=== PATIENT | male | born 1965 | race Caucasian/White ===

== ENCOUNTER 2017-06-17 08:28 | Emergency (ER) | payer BC ==
[~2017-06-17] VITALS: Ht 182.9 cm; Wt 88.1 kg
[~2017-06-17 08:28] MED LIST: CEPHALEXIN500 M1 PO; CIPRO 500MG TA500 MG; ELOCON OINT45 GM TP; HUMALOG PEN100 U/ML SC; LANTUS PEN100 U/ML; LANTUS PEN100 U/ML SC; LEVAQUIN 750MG750 M1 PO; MOMETASONE TP; NOVOLOG FLEX100 U/ML; PREDNISONE20 MG PO
[2017-06-17] MEDS ORDERED: ZOFRAN ODT4 MG PO (14:02)
[2017-06-17 14:04] VITALS: BP 133/76
== END 2017-06-17 14:04 | disposition home or self-care (01) ==
LOC: ED 08:28
DX: E10.10 Type 1 diabetes mellitus with ketoacidosis without coma (principal); Z79.4 Long term (current) use of insulin; R19.7 Diarrhea, unspecified; R11.10 Vomiting, unspecified; R10.817 Generalized abdominal tenderness
CPT/HCPCS: J1815; J2405; J7030

== ENCOUNTER → 2017-06-18 | Outpatient (CLI) | payer BC ==
[2017-06-17 14:04] VITALS: BP 133/76
[~2017-06-18] MED LIST changes: +ZOFRAN ODT4 MG PO
== END ==
LOC: LAB 07:17
DX: R19.7 Diarrhea, unspecified (principal)

== ENCOUNTER 2017-10-14 08:58 | Emergency (ER) | payer BC ==
[~2017-10-14] VITALS: Ht 182.9 cm; Wt 88.6 kg
[2017-10-14 09:56] LABS: HEMATOCRIT 50.5 % (42.0-52.0); HEMOGLOBIN 17.4 g/dL (13.5-18.0); MEAN CELL VOLUME 86 fl (78-100); MEAN CORPUSCULAR HEMOGLOBIN 30 pg (27-31); MEAN CORPUSCULAR HGB CONC 35 g/dL (33-37); PLATELET COUNT 157 K/mm3 (130-400); RED BLOOD COUNT 5.86 M/mm3 (4.20-5.60); RED CELL DISTRIBUTION WIDTH 12.7 % (11.5-14.5); WHITE BLOOD COUNT 7.4 K/mm3 (4.8-10.8)
[2017-10-14 10:06] LABS: ALBUMIN 3.7 g/dL (3.5-5.0); BUN/CREATININE RATIO 18.7 (6.0-26.0); CALCIUM 8.8 mg/dL (8.4-10.2); POTASSIUM 4.5 mmol/L (3.6-5.0); TOTAL BILIRUBIN 0.9 mg/dL (0.2-1.3); TOTAL PROTEIN 6.5 g/dL (6.3-8.2)
[2017-10-14 10:16] LABS: BAND 12 % (0-10); LYMPHOCYTE 11 % (20-51); MONOCYTE 12 % (3-10); NEUTROPHILS 65 % (42-75)
[2017-10-14 11:12] LABS: URINE APPEARANCE CLEAR; URINE BILIRUBIN NEGATIVE (NEGATIVE); URINE BLOOD NEGATIVE (NEGATIVE); URINE COLOR AMBER; URINE KETONE 2+ (NEGATIVE); URINE LEUKOCYTE ESTERASE NEGATIVE (NEGATIVE); URINE NITRATE NEGATIVE (NEGATIVE); URINE PROTEIN(semi-quant) NEGATIVE (NEGATIVE); URINE UROBILINOGEN NORMAL (NORMAL); URINE WBC 0-1 /hpf (0-3)
[2017-10-14] MEDS ORDERED: TESSALON PERLE100 M1 PO (12:24)
[2017-10-14 13:01] VITALS: BP 117/69
== END 2017-10-14 12:50 | disposition home or self-care (01) ==
LOC: ED 08:58
PROVIDERS: Nurse Practitioner Primary Care
DX: J11.1 Influenza due to unidentified influenza virus with other respiratory manifestations (principal); E10.9 Type 1 diabetes mellitus without complications; Z79.4 Long term (current) use of insulin
CPT/HCPCS: J7030

== ENCOUNTER → 2018-02-07 | Outpatient (CLI) | payer BC ==
[~2018-02-07] MED LIST changes: +TESSALON PERLE100 M1 PO
== END ==
LOC: LAB 06:15
DX: E10.9 Type 1 diabetes mellitus without complications (principal)

== ENCOUNTER → 2018-05-09 | Outpatient (CLI) | payer BC | LOC: LAB 07:03 | DX: E10.9 Type 1 diabetes mellitus without complications (principal) ==

== ENCOUNTER → 2018-06-02 | Outpatient (CLI) | payer BC ==
[2018-06-02 07:29] LABS: EOS # 0.2 (0.04-0.40); EOS % 2.7 % (0.0-4.0); HEMATOCRIT 49.3 % (42.0-52.0); HEMOGLOBIN 17.4 g/dL (13.5-18.0); LYMPH# 1.4 (1.50-4.00); MEAN CELL VOLUME 87 fl (78-100); MEAN CORPUSCULAR HEMOGLOBIN 31 pg (27-31); MEAN CORPUSCULAR HGB CONC 35 g/dL (33-37); MEAN PLATELET VOLUME 9.5 fl (7.4-10.4); MONO # 0.5 (0.20-0.80); NEU # 4.7 (1.40-6.50); PLATELET COUNT 225 K/mm3 (130-400); RED BLOOD COUNT 5.69 M/mm3 (4.20-5.60); RED CELL DISTRIBUTION WIDTH 12.7 % (11.5-14.5); WHITE BLOOD COUNT 6.8 K/mm3 (4.8-10.8)
[2018-06-02 07:39] LABS: ALBUMIN 3.9 g/dL (3.5-5.0); CALCIUM 9.1 mg/dL (8.4-10.2); POTASSIUM 4.3 mmol/L (3.6-5.0); TOTAL BILIRUBIN 0.9 mg/dL (0.2-1.3); TOTAL PROTEIN 6.5 g/dL (6.3-8.2)
[2018-06-02 09:18] LABS: ERYTHROCYTE SEDIMENTATION RATE 0 mm/hr (0-20)
[2018-06-02 22:40] LABS: IMMUNOGLOBULIN E, TOTAL 27 IU/mL (0-100)
[2018-06-03 06:51] LABS: C-REACTIVE PROTEIN XXX
== END ==
LOC: LAB 07:14
PROVIDERS: Dermatology
DX: R21 Rash and other nonspecific skin eruption (principal)

== ENCOUNTER 2020-04-30 20:01 | Emergency (ER) | payer BC ==
[~2020-04-30] VITALS: Ht 182.9 cm; Wt 95.5 kg
[2020-04-30] MEDS ORDERED: DAPSONE25 M1 PO (20:19)
[2020-04-30] MEDS ORDERED: CEPHALEXIN500 M1 PO (21:17)
[2020-04-30 22:08] VITALS: BP 139/86
== END 2020-04-30 22:08 | disposition home or self-care (01) ==
LOC: ED 20:01
DX: S01.111A Laceration without foreign body of right eyelid and periocular area, initial encounter (principal); E10.649 Type 1 diabetes mellitus with hypoglycemia without coma; Z23 Encounter for immunization; W19.XXXA Unspecified fall, initial encounter; Y92.009 Unspecified place in unspecified non-institutional (private) residence as the place of occurrence of the external cause
CPT/HCPCS: 90715

== ENCOUNTER → 2020-05-07 | Outpatient (CLI) | payer BC ==
[2020-04-30 22:08] VITALS: BP 139/86
[~2020-05-07] MED LIST changes: +DAPSONE25 M1 PO
== END ==
LOC: AMSURD 17:10
DX: Z48.02 Encounter for removal of sutures (principal)

== ENCOUNTER → 2020-08-18 | Outpatient (CLI) | payer BC | LOC: RAD 10:54 | DX: M25.561 Pain in right knee (principal); E10.9 Type 1 diabetes mellitus without complications ==